=== PATIENT | female | born 1960 | race Caucasian/White ===

== ENCOUNTER 2024-07-17 13:23 | Observation (INO) | payer BC ==
--- NOTE | 2024-07-17 15:08 | RAD REPORT ---
EXAM: Chest Single View HISTORY: COUGH COMPARISON: 08/31/2023 FINDINGS: LUNGS/PLEURA: Possible free air underneath the right hemidiaphragm. The lungs are clear. MEDIASTINUM: The mediastinal silhouette is within normal limits. CARDIAC: The cardiac silhouette is within normal limits. UPPER ABDOMEN: No significant abnormality. BONES: No acute abnormality. LINES/TUBES/OTHER: N/A IMPRESSION: Possible free air underneath the right hemidiaphragm. The lungs are clear. THIS REPORT CONTAINS FINDINGS THAT MAY BE CRITICAL TO PATIENT CARE. The emergent findings were commun icated to Dr. Mathew on 07/17/2024 3:05 PM.
[2024-07-17 15:43] LABS: Absolute Lymphocytes (CBC) 0.7 K/uL (0.7-4.9); Absolute Monocytes 0.3 K/uL (0.1-1.3); Absolute Neutrophil 12.1 K/uL (1.8-8.0); Basophils % 0.1 % (0-1.3); Hematocrit 39.3 % (36.0-45.0); Hemoglobin 13.4 g/dL (12.0-15.0); Lymphocytes % 5.2 % (15.3-44.8); MCH 30.4 pg (27.0-35.0); MCHC 34.2 g/dL (32.0-36.0); MCV 88.8 fL (80-100); MPV 6.7 fL (7.6-11.3); Monocytes % 2.6 % (3.3-12.3); Neutrophils % 92.1 % (41.7-73.7); Platelets 331 thou/uL (152-406); RBC Red Blood Cell Count 4.42 M/uL (3.86-4.86); Red Cell Distribution Width 15.4 % (12.1-15.2)
[2024-07-17] MEDS ORDERED: ALBUTEROL 2.5 MG/3 ML NEB SOL ONE (15:52)
[2024-07-17] MEDS ORDERED: CEFTRIAXONE 1000 MG/VIAL ONE (15:52)
[2024-07-17] MEDS ORDERED: IPRATROPIUM BROM 0.5MG/2.5ML ONE (15:52)
[2024-07-17] MEDS ORDERED: METHYLPREDNISOLONE 125 MG INJ ONE (15:53)
[2024-07-17 16:03] LABS: Anion Gap 11.3 mEq/L (5.0-15.0); BUN Blood Urea Nitrogen 12 mg/dL (7-18); Bicarbonate 25 mEq/L (21-32); Glomerular Filtration Rate 94 ml/min (=/>90); Glucose Level 144 mg/dL (74-106); NT PRO-BNP 96 pg/mL (<125); Potassium 4.3 mEq/L (3.5-5.1); Sodium Level 135 mEq/L (136-145)
[2024-07-17 16:05] LABS: Troponin High Sensitivity < 3.0 pg/mL (<58.9)
--- NOTE | 2024-07-17 16:56 | RAD REPORT ---
EXAMINATION: CT ABDOMEN AND PELVIS WITH CONTRAST CLINICAL INDICATION: Female, 63 years old.eval for ruptured viscus TECHNIQUE: CT abdomen and pelvis was performed, after the administration of IV contrast, as per [facility] protocol. Axial, sagittal and coronal reconstructions were obtained. One or more of the following dose reduction techniques were used: Automated exposure control, adjustment of the mA and/o r kV according to patient size, and/or iterative reconstruction. Unless otherwise specified, incidental findings do not require dedicated imaging follow-up. [id number]. COMPARISON: No prior exam. FINDINGS: LOWER CHEST: Mild nodular and consolidative opacities in the medial lung bases bilaterally.No signifi cant pericardial effusion. Small hiatal hernia. UPPER GI: No significant abnormality. LIVER: No significant focal abnormality. GALLBLADDER/BILE DUCTS: No biliary ductal dilatation.? PANCREAS: Atrophy, but otherwise unremarkable. SPLEEN: Unremarkable. ADRENALS: No adrenal masses. KIDNEYS AND URETERS: No hydronephrosis.No suspicious renal mass. ABDOMINAL AORTA AND OTHER VESSELS: Mild atherosclerotic changes. PERITONEUM: No abnormal free fluid. No free air. LYMPH NODES: No pathologic lymphadenopathy. ABDOMINAL WALL: Unremarkable SMALL BOWEL/COLON: Small bowel has normal course and caliber. No colonic wall thickening or pericolon ic inflammatory changes.Normal appendix. Mild diverticulosis without diverticulitis. Formed stool in the small bowel suggesting slow transit. Probably some element of constipation is present. URINARY BLADDER: Underdistended but grossly unremarkable. REPRODUCTIVE ORGANS: No pathologic process. MUSCULOSKELETAL: Multilevel degenerative changes in the spine. No acute fracture. Left hip arthroplas ty. Grade 1 anterolisthesis of L3 on L4. ADDITIONAL FINDINGS: None. IMPRESSION: No acute or significant abnormalities seen in the abdomen or pelvis. Specifically, no evidence of pne umoperitoneum. Nodular and mildly consolidative airspace disease in the medial lung bases could reflect either a non specific infectious or inflammatory process or possibly sequela of aspiration.
--- NOTE | 2024-07-17 17:00 | ER ---
Nurse's Notes [facility] Name: Elizabeth Rogel Age: 63 yrs Sex: Female : 1960 Arrival Date: 07/17/2024 Time: 13:23 Bed 24 Private MD: Diagnosis: Unspecified bacterial pneumonia;Sepsis, unspecified organism Presentation: 07/17 13:53 Chief complaint: Patient states: she has been having shortness of breath, cough, and ap3 sore throat since Wednesday07/10/24. Patient states she was evaluated by her PCP and her asthma Dr. who told her to come here for further evaluation after antibiotic treatment, breathing treatments and steroids. Patient states she was diagnosed with the FLU Friday 07/14. Coronavirus screen: At this time, the client does not indicate any symptoms associated with coronavirus-19. Ebola Screen: No symptoms or risks identified at this time. Initial Sepsis Screen: Does the patient meet any 2 criteria? No. Patient's initial sepsis screen is negative. Does the patient have a suspected source of infection? No. Patient's initial sepsis screen is negative. Risk Assessment: Do you want to hurt yourself or someone else? Patient reports no desire to harm self or others. Onset of symptoms was July 10, 2024. 13:53 Method Of Arrival: Ambulatory ap3 13:53 Acuity: KARLA 3 ap3 Triage Assessment: 13:57 General: Appears in no apparent distress. Behavior is calm, cooperative, appropriate ap3 for age. Pain: Denies pain. Neuro: Level of Consciousness is awake, alert, obeys commands, Oriented to person, place, time, situation, Appropriate for age. Cardiovascular: Patient's skin is warm and dry. Respiratory: Reports cough that is Airway is patent Respiratory effort is even, unlabored, Respiratory pattern is regular, symmetrical, Onset: The symptoms/episode began/occurred gradually, the patient has mild shortness of breath. Historical: - Allergies: 13:57 Tizanidine; ap3 - PMHx: 13:57 Asthma; valve prolapse; Hypercholesterolemia; ap3 - Immunization history:: Client reports receiving the 2nd dose of the Covid vaccine, Flu vaccine is up to date. - Infectious Disease History:: Denies. - Social history:: Smoking status: Patient denies any tobacco usage or history of. Screenin:58 [facility] ED Fall Risk Assessment (Adult) History of falling in the last 3 months, ap3 including since admission No falls in past 3 months (0 pts) Confusion or Disorientation No (0 pts) Intoxicated or Sedated No (0 pts) Impaired Gait No (0 pts) Mobility Assist Device Used No (0 pt) Altered Elimination No (0 pt) Score/Fall Risk Level 0 - 2 = Low Risk Oriented to surroundings, Maintained a safe environment, Educated pt \T\ family on fall prevention, incl call for assistance when getting out of bed, Assessed \T\ reinforced patient's understanding of fall precautions, Hourly rounding (assess needs \T\ fall precautionary measures) done, Used ambulatory aids as needed (educated on \T\ assisted with). Abuse screen: Denies threats or abuse. Nutritional screening: No deficits noted. Tuberculosis screening: No symptoms or risk factors identified. Assessment: 15:30 General: Appears in no apparent distress. uncomfortable, Behavior is calm, cooperative, jb4 appropriate for age. Pain: Denies pain. Neuro: Level of Consciousness is awake, alert, obeys commands, Oriented to person, place, time, situation. Cardiovascular: Patient's skin is warm and dry. Rhythm is sinus rhythm. Respiratory: Airway is patent Respiratory effort is even, labored, Respiratory pattern is regular, symmetrical. Derm: Skin is intact, Skin is pink, warm \T\ dry. Musculoskeletal: Circulation, motion, and sensation intact. Range of motion: intact in all extremities. 16:32 Reassessment: Patient appears in no apparent distress at this time. Patient and/or jb4 family updated on plan of care and expected duration. Pain level reassessed. Patient is alert, oriented x 3, equal unlabored respirations, skin warm/dry/pink. 17:30 Reassessment: Patient appears in no apparent distress at this time. Patient and/or jb4 family updated on plan of care and expected duration. Pain level reassessed. Patient is alert, oriented x 3, equal unlabored respirations, skin warm/dry/pink. 18:30 Reassessment: Patient appears in no apparent distress at this time. Patient and/or jb4 family updated on plan of care and expected duration. Pain level reassessed. Patient is alert, oriented x 3, equal unlabored respirations, skin warm/dry/pink. 19:30 Reassessment: Patient appears in no apparent distress at this time. Patient and/or jb4 family updated on plan of care and expected duration. Pain level reassessed. Patient is alert, oriented x 3, equal unlabored respirations, skin warm/dry/pink. 20:30 Reassessment: Patient appears in no apparent distress at this time. Patient and/or jb4 family updated on plan of care and expected duration. Pain level reassessed. Patient is alert, oriented x 3, equal unlabored respirations, skin warm/dry/pink. 21:30 Reassessment: Patient appears in no apparent distress at this time. Patient and/or jb4 family updated on plan of care and expected duration. Pain level reassessed. Patient is alert, oriented x 3, equal unlabored respirations, skin warm/dry/pink. Vital Signs: 13:30 Pulse Ox 97% on R/A; ap3 13:53 BP 156 / 72; Pulse 85; Resp 18; Temp 98.2; Pulse Ox 98% on R/A; ap3 13:53 Weight 74.84 kg; Height 5 ft. 5 in. ; ap3 16:32 BP 127 / 62; Pulse 91; Resp 14; Pulse Ox 100% on 8 lpm Nebulizer Mask; jb4 18:00 BP 137 / 50; Pulse 98; Resp 16; Pulse Ox 99% on R/A; jb4 19:00 BP 132 / 65; Pulse 97; Resp 16; Pulse Ox 96% on R/A; jb4 19:30 BP 136 / 64; Pulse 96; Resp 18; Pulse Ox 97% on R/A; jb4 21:45 BP 146 / 77; Pulse 91; Resp 16; Pulse Ox 97% on R/A; jb4 13:53 Body Mass Index 27.46 (74.84 kg, 165.1 cm) ap3 ED Course: 13:25 Patient arrived in ED. as 13:36 Hung Mathew MD is Attending Physician. ec2 13:57 Triage completed. ap3 13:58 Arm band placed on right wrist. ap3 14:57 XRAY Chest (1 view) In Process Unspecified. EDMS 15:33 Inserted saline lock: 20 gauge in right antecubital area, using aseptic technique. jb4 Blood collected. 15:34 Troponin HS Sent. jb4 15:34 NT PRO-BNP Sent. jb4 15:34 CBC with Diff Sent. jb4 15:35 Basic Metabolic Panel Sent. jb4 16:31 Jorge Spencer, RN is Primary Nurse. jb4 16:35 CT Abd/Pelvis - IV Contrast Only In Process Unspecified. EDMS 17:00 Morales Griggs is Hospitalizing Provider. ec2 22:20 Patient has correct armband on for positive identification. Bed in low position. Call jb4 light in reach. Side rails up X 1. Provided Education on: need for admit. 22:20 No provider procedures requiring assistance completed. Patient admitted, IV remains in jb4 place. Administered Medications: 16:04 Drug: Rocephin IV 1 grams IV at calculated rate once; Given slow IV push per pharmacy jb4 instructions Route: IV; Rate: calculated rate; Site: right antecubital; 16:07 Follow up: IV Status: Completed infusion; IV Intake: 10ml jb4 16:04 Drug: DuoNeb Nebulize (3:1) (2.5 mg - 0.5 mg) 3 ml Nebulizer once Route: Nebulizer; jb4 18:23 Follow up: Response: No adverse reaction; Marked relief of symptoms jb4 16:04 Drug: MethylPrednisoLONE IVP 125 mg IVP once Route: IVP; Site: right antecubital; jb4 18:23 Follow up: Response: No adverse reaction jb4 18:35 Drug: AZITHromycin IVPB 500 mg IVPB once over 1 hrs; (mix in 250 mL NS) Route: IVPB; jb4 Infused Over: 1 hrs; Site: right forearm; 19:35 Follow up: Response: No adverse reaction; IV Status: Completed infusion; IV Intake: jb4 250ml 19:05 CANCELLED (Physician Discretion): ns 0.9% 2000 ml IV at 1 bolus Per protocol; to be ec2 given as a bolus over 60 minutes 19:24 Drug: NS 0.9% IV 2500 ml IV at 2500 bolus Per protocol; to be given as a bolus over 60 jb4 minutes Route: IV; Rate: 2500 bolus; Site: right antecubital; 21:00 Follow up: Response: No adverse reaction; IV Status: Completed infusion; IV Intake: jb4 2500ml Medication: 22:20 VIS not applicable for this client. jb4 Intake: 16:07 IV: 10ml; Total: 10ml. jb4 19:35 IV: 250ml; Total: 260ml. jb4 21:00 IV: 2500ml; Total: 2760ml. jb4 Outcome: 17:00 Decision to Hospitalize by Provider. ec2 22:20 Admitted to Tele accompanied by nurse, room 410, with chart, jb4 22:20 Condition: stable 22:20 Discharge instructions given to patient, family, Instructed on the need for admit, Demonstrated understanding of instructions, 22:21 Patient left the ED. jb4 Signatures: Dispatcher [employer] Sabine Stockton James, RN RN jb4 Marbella Newton RN RN ap3 Hung Mathew MD MD ec2
--- NOTE | 2024-07-17 17:01 | EDPHYS ---
Physician Documentation [facility] Name: Elizabeth Rogel Age: 63 yrs Sex: Female : 1960 Arrival Date: 07/17/2024 Time: 13:23 Bed 24 Private MD: ED Physician Hung Mathew HPI: 07/17 14:09 This 63 yrs old Female presents to ER via Ambulatory with complaints of ec2 Pneumonia, Shortness Of Breath. 14:11 Patient arrives today for cough symptoms. Patient with history of asthma, recent trial ec2 of Augmentin and azithromycin, reports that she was diagnosed with pneumonia, is having persistent cough as well as shortness of breath with minimal improvement of symptoms despite antibiotic therapy. Patient also tested positive for flu several days ago at urgent care.. Historical: - Allergies: 13:57 Tizanidine; ap3 - PMHx: 13:57 Asthma; valve prolapse; Hypercholesterolemia; ap3 - Immunization history:: Client reports receiving the 2nd dose of the Covid vaccine, Flu vaccine is up to date. - Infectious Disease History:: Denies. - Social history:: Smoking status: Patient denies any tobacco usage or history of. ROS: 14:10 Constitutional: as per hpi ec2 Exam: 14:10 Constitutional: GEN: NAD Head: atraumatic Eyes: EOMI Ears: External ears are ec2 normal. CV: regular rate LUNGS: no respiratory distress, scattered rales noted, scattered wheezes noted. ABD: non-distended SKIN: no evidence of rashes MSK: no evidence of trauma Vital Signs: 13:30 Pulse Ox 97% on R/A; ap3 13:53 BP 156 / 72; Pulse 85; Resp 18; Temp 98.2; Pulse Ox 98% on R/A; ap3 13:53 Weight 74.84 kg; Height 5 ft. 5 in. ; ap3 16:32 BP 127 / 62; Pulse 91; Resp 14; Pulse Ox 100% on 8 lpm Nebulizer Mask; jb4 18:00 BP 137 / 50; Pulse 98; Resp 16; Pulse Ox 99% on R/A; jb4 19:00 BP 132 / 65; Pulse 97; Resp 16; Pulse Ox 96% on R/A; jb4 19:30 BP 136 / 64; Pulse 96; Resp 18; Pulse Ox 97% on R/A; jb4 21:45 BP 146 / 77; Pulse 91; Resp 16; Pulse Ox 97% on R/A; jb4 13:53 Body Mass Index 27.46 (74.84 kg, 165.1 cm) ap3 MDM: 13:57 Medical Screening Exam initiated ec2 14:11 Data reviewed: vital signs, nurses notes. ec2 14:12 ED course: Patient arrives today for evaluation of cough symptoms. Examination yields ec2 cardiopulmonary findings as above. Obtain lab work, chest x-ray. DDx include processes such as asthma exacerbation, fluid retention, pneumonia.. 15:48 ED course: EKG independently reviewed and interpreted by me, shows normal sinus rhythm, ec2 rate of 86, no acute ST segment elevations, intervals are nonactionable.. 16:11 ED course: EKG independently reviewed and interpreted by me, shows normal sinus rhythm, ec2 rate of 86, no acute ST segment elevations, intervals are nonactionable.. 16:37 ED course: CBC shows slight leukocytosis. Troponin within normal ranges, BMP within ec2 normal ranges, chest x-ray shows possible free air under the right hemidiaphragm, will obtain CT scan of the abdomen pelvis as well.. 16:59 ED course: CT imaging shows pneumonia, will admit given failed outpatient therapy. ec2 Discussed with hospitalist, pending admission.. 07/17 14:08 Order name: Basic Metabolic Panel; Complete Time: 16:36 ec2 07/17 14:08 Order name: CBC with Diff; Complete Time: 19:04 ec2 07/17 14:08 Order name: NT PRO-BNP; Complete Time: 16:36 ec2 07/17 14:08 Order name: Troponin HS; Complete Time: 16:36 ec2 07/17 16:59 Order name: Lactate w/ 2H reflex if indic.; Complete Time: 19:04 ec2 07/17 16:59 Order name: Blood Culture Adult (2) ec2 07/17 17:18 Order name: Manual Differential; Complete Time: 19:04 EDMS 07/17 18:52 Order name: CBC with Automated Diff EDMS 07/17 18:52 Order name: CBC with Automated Diff EDMS 07/17 18:52 Order name: Comprehensive Metabolic Panel EDMS 07/17 18:52 Order name: Comprehensive Metabolic Panel EDMS 07/17 18:52 Order name: Troponin High Sensitivity [facility] 07/17 18:52 Order name: Troponin High Sensitivity [facility] 07/17 18:52 Order name: Troponin High Sensitivity [facility] 07/17 18:52 Order name: Troponin High Sensitivity [facility] 07/17 18:53 Order name: C-Reactive Protein [facility] 07/17 18:53 Order name: Lactate w/ 2H reflex if indic. [facility] 07/17 18:53 Order name: NT PRO-BNP [facility] 07/17 18:53 Order name: Procalcitonin [facility] 07/17 18:53 Order name: T4 Free [facility] 07/17 18:53 Order name: Thyroid Stimulating Hormone [facility] 07/17 18:53 Order name: Vitamin B12 Level [facility] 07/17 18:56 Order name: Ghost Lactate-NO COLLECT Timer [facility] 07/17 22:20 Order name: Lactate Sepsis 2 HR Follow-up [facility] 07/17 14:08 Order name: XRAY Chest (1 view); Complete Time: 15:11 ec2 07/17 15:08 Order name: CT Abd/Pelvis - IV Contrast Only; Complete Time: 16:57 ec2 07/17 18:53 Order name: Echo with Doppler [facility] 07/17 18:53 Order name: Echo with Doppler [facility] 07/17 18:53 Order name: Chest Single View [facility] 07/17 14:08 Order name: EKG; Complete Time: 14:08 ec2 07/17 18:52 Order name: CONS Physician Consult [facility] 07/17 14:08 Order name: Cardiac monitoring; Complete Time: 15:48 ec2 07/17 14:08 Order name: EKG - Nurse/Tech; Complete Time: 15:48 ec2 07/17 14:08 Order name: IV Saline Lock; Complete Time: 15:34 ec2 07/17 14:08 Order name: Labs collected and sent; Complete Time: 15:34 ec2 07/17 14:08 Order name: O2 Per Protocol; Complete Time: 15:34 ec2 07/17 14:08 Order name: O2 Sat Monitoring; Complete Time: 15:34 ec2 Administered Medications: 16:04 Drug: Rocephin IV 1 grams IV at calculated rate once; Given slow IV push per pharmacy jb4 instructions Route: IV; Rate: calculated rate; Site: right antecubital; 16:07 Follow up: IV Status: Completed infusion; IV Intake: 10ml 4 16:04 Drug: DuoNeb Nebulize (3:1) (2.5 mg - 0.5 mg) 3 ml Nebulizer once Route: Nebulizer; jb4 18:23 Follow up: Response: No adverse reaction; Marked relief of symptoms jb4 16:04 Drug: MethylPrednisoLONE IVP 125 mg IVP once Route: IVP; Site: right antecubital; jb4 18:23 Follow up: Response: No adverse reaction jb4 18:35 Drug: AZITHromycin IVPB 500 mg IVPB once over 1 hrs; (mix in 250 mL NS) Route: IVPB; jb4 Infused Over: 1 hrs; Site: right forearm; 19:35 Follow up: Response: No adverse reaction; IV Status: Completed infusion; IV Intake: jb4 250ml 19:05 CANCELLED (Physician Discretion): ns 0.9% 2000 ml IV at 1 bolus Per protocol; to be ec2 given as a bolus over 60 minutes 19:24 Drug: NS 0.9% IV 2500 ml IV at 2500 bolus Per protocol; to be given as a bolus over 60 jb4 minutes Route: IV; Rate: 2500 bolus; Site: right antecubital; 21:00 Follow up: Response: No adverse reaction; IV Status: Completed infusion; IV Intake: jb4 2500ml Disposition: 16:59 Critical Care:. ec2 Disposition Summary: 07/17/24 17:00 Hospitalization Ordered Notes: Hospitalization Status: Inpatient Admission ec2 Provider: Morales Griggs ec2 [facility] ([facility]) ec2 Condition: Stable ec2 Problem: an ongoing problem ec2 Symptoms: are unchanged ec2 Bed/Room Type: Standard ec2 Room Assignment: 410(07/17/24 19:46) rv1 Diagnosis - Unspecified bacterial pneumonia ec2 - Sepsis, unspecified organism ec2 Forms: - Medication Reconciliation Form ec2 - SBAR form ec2 - Leadership Thank You Letter ec2 Critical care time excluding procedures: 16:59 Critical care time: Bedside Care: 30 minutes, Consultation: 5 minutes. Total time: 35 ec2 minutes Signatures: Dispatcher [employer] Jorge Youngblood RN RN jb4 Marbella Newton RN RN ap3 Zandra Cheng rv1 Hung Mathew MD MD ec2 Corrections: (The following items were deleted from the chart) 19:05 19:04 NS 0.9% IV 2000 ml IV at 1 bolus Per protocol; to be given as a bolus over 60 ec2 minutes ordered. ec2 19:46 17:00 ec2 rv1
[2024-07-17 17:17] LABS: Band Neutrophils 7 % (0-1); Differential Total Cells Count 100; Lymphocytes 8 % (15-42); Monocytes 3 % (0-10); Segmented Neutrophils 80 % (40-80)
[2024-07-17 17:18] LABS: Blood Morphology Comment NOT SEEN (NOT SEEN); Metamyelocytes 2 % (0-0); Platelet Estimate ADEQ; Platelets Clumped FEW
[2024-07-17] MEDS ORDERED: AZITHROMYCIN 500 MG INJ IVPB ONE (18:27)
[2024-07-17] MEDS ORDERED: NA CHLORIDE 0.9% 250 ML ONE (18:27)
[2024-07-17] MEDS ORDERED: MORPHINE 2 MG/ML SYR IV PRN (18:45)
[2024-07-17] MEDS ORDERED: ONDANSETRON 4 MG/2 ML VIAL IV PRN (18:45)
--- NOTE | 2024-07-17 18:54 | P.HP ---
Certification for Inpatient Patient admitted to: Observation With expected LOS: <2 Midnights Patient will require the following post-hospital care: None Practitioner: I am a practitioner with admitting privileges, knowledge of patient current condition, hospital course, and medical plan of care. Services: Services provided to patient in accordance with Admission requirements found in Title 42 Section 412.3 of the Code of Federal Regulations Patient History Date of Service: 07/17/24 Reason for admission: Shortness of breath History of Present Illness: Patient is a 63-year-old female who has been dealing with shortness of breath for the last 5 to 7 days. Her symptoms have been gradually getting worse so she went to a telemedicine appointment and she was prescribed Augmentin and prednisone. Her clinical symptoms were not improving so she went to see her PCP who gave her Zithromax. After the Zithromax she still did not get any better so she went to urgent care and she had a chest x-ray which showed a questionable left pleural effusion and left lower lobe infiltrate. She was started on Zithromax on Wednesday and went to the urgent care this past weekend. She was not improving she followed up with her sweatband maker who recommended her coming to the emergency room. In the ER she was short of breath but her chest x-ray did not reveal any pulmonary abnormalities except addition of some free air underneath the right diaphragm. Abdominal films were unremarkable. Clinically she does not appear to have an acute abdomen. She was coughing violently which led her to crying yesterday. She did start feeling some pain in the right side at that time. Currently she is doing better and she will be admitted for observation. Allergies tizanidine Allergy (Verified 07/17/24 22:26) Anaphylaxis mushroom Adverse Reaction (Verified 07/17/24 22:26) Nausea/Vomiting Home Medications: Fluticasone/Umeclidin/Vilanter [Trelegy Ellipta 100-62.5-25] 1 puff IH DAILY 07/17/24 Pregabalin [Lyrica*] 1 cap PO BID 07/17/24 Thyroid,Pork [[place] Thyroid] 1 tab PO DAILY 07/17/24 - Past Medical/Surgical History -: Hypothyroidism -: Hyperlipidemia -: Chronic low back pain Past Surgical History: Patient denies surgical history - Family History Father Family History: Reviewed- Non-Contributory - Social History Smoking Status: Never smoker Alcohol use: No CD- Drugs: No Review of Systems 10-point ROS is otherwise unremarkable Physical Examination - Vital Signs Temperature: 98 F Blood Pressure: 130/80 Pulse: 80 Respirations: 18 Pulse Ox (%): 95 - Physical Exam General: Alert, In no apparent distress, Oriented x3 HEENT: Atraumatic, PERRLA, Mucous membr. moist/pink, EOMI, Sclerae nonicteric Neck: Supple, 2+ carotid pulse no bruit, No LAD, Without JVD or thyroid abnormality Respiratory: Other (Coarse breath sounds) Cardiovascular: Regular rate/rhythm, Normal S1 S2, No murmurs, Other (Tachyarrhythmia) Gastrointestinal: Normal bowel sounds, Soft and benign, Non-distended, No tenderness Musculoskeletal: No clubbing, No swelling, No tenderness Integumentary: No rashes Neurological: Normal gait, Normal speech, Normal strength at 5/5 x4 extr, Normal tone, Sensation intact, Cranial nerves 3-12 intact, Normal affect Lymphatics: No axilla or inguinal lymphadenopathy - Studies Laboratory Data (last 24 hrs) 07/17/24 07/17/24 15:33 15:33 WBC 13.20 H Hgb 13.4 Hct 39.3 Plt Count 331 Sodium 135 L Potassium 4.3 BUN 12 Creatinine 0.72 Glucose 144 H Assessment & Plan - Problems (Diagnosis) (1) Viral pneumonia Current Visit: Yes Status: Acute (2) Tachyarrhythmia Current Visit: Yes Status: Acute (3) Intra-abdominal free air of unknown etiology Current Visit: Yes Status: Acute (4) History of hypothyroidism Current Visit: Yes Status: Acute - Plan Plan: 1. Patient with shortness of breath; unknown etiology. Imaging studies without any significant abnormality. Patient could have a viral syndrome or could have asthma. Will get pulmonary consultation. Continue with nebs, steroids, and antibiotics. 2. Patient with free air underneath the diaphragm; unknown etiology. Patient states she was vigorously coughing to the point where she started having pain on the right side. The free air is mainly seen underneath the right side of the diaphragm.Chest x-rays from a few days ago showed infiltrate on the left side. Also a questionable effusion. Currently imaging studies do not reveal an infiltrate or an effusion. Will continue with supportive care and will get general surgery input. 3. History of hypothyroidism; continue with thyroid supplementation 4. History of low back pain; continue with Lyrica 5. GI and DVT prophylaxis Discharge Plan: Home Plan to discharge in: 24 Hours - Advance Directives Does patient have a Living Will: No Does patient have a Durable POA for Healthcare: No - Code Status/Comfort Care Code Status Assessed: Yes Code Status: Full Code Critical Care: No Time Spent Managing PTS Care (In Minutes): 45
[2024-07-17] MEDS: IPRATROPIUM BROM 0.5MG/2.5ML NEB SCH (19:00)
[2024-07-17] MEDS: ALBUTEROL 2.5 MG/3 ML NEB SOL NEB SCH (19:00)
[2024-07-17] MEDS ORDERED: NA CHLORIDE 0.9% 500 ML ONE (19:18)
[2024-07-17] MEDS ORDERED: NA CHLORIDE 0.9% 2,000 ML ONE (19:19)
[2024-07-17 22:27] VITALS: BMI 27.4
[2024-07-17] MEDS: NA CHLORIDE 0.9% 1,000 ML IV SCH (22:49)
[2024-07-17] MEDS: METHYLPREDNISOLONE 40 MG INJ IV SCH (22:49)
[2024-07-18] MEDS: PIPER TAZO 3.375 GM in NA CHLORIDE 0.9% 100 ML IV SCH (00:47)
[2024-07-18] MEDS: ACETAMINOPHEN 500 MG TAB PO PRN (02:48)
[2024-07-18 04:31] VITALS: O2SAT 97
[2024-07-18 06:26] LABS: Absolute Lymphocytes (CBC) 0.7 K/uL (0.7-4.9); Absolute Monocytes 0.3 K/uL (0.1-1.3); Absolute Neutrophil 9.6 K/uL (1.8-8.0); Basophils % 0.1 % (0-1.3); Hematocrit 34.2 % (36.0-45.0); Hemoglobin 11.6 g/dL (12.0-15.0); Lymphocytes % 6.7 % (15.3-44.8); MCH 30.1 pg (27.0-35.0); MCV 88.4 fL (80-100); MPV 6.7 fL (7.6-11.3); Neutrophils % 90.2 % (41.7-73.7); Platelets 311 thou/uL (152-406); RBC Red Blood Cell Count 3.87 M/uL (3.86-4.86); Red Cell Distribution Width 15.6 % (12.1-15.2)
[2024-07-18 06:39] LABS: Albumin 2.7 g/dL (3.4-5.0); Albumin/Globulin Ratio 0.8 (1.1-1.8); Anion Gap 13.9 mEq/L (5.0-15.0); Bilirubin Total 0.2 mg/dL (0.2-1.0); Globulin 3.5 g/dL (2.3-3.5); Potassium 3.9 mEq/L (3.5-5.1); Protein, Total 6.2 g/dL (6.4-8.2); Troponin High Sensitivity 7.1 pg/mL (<58.9)
[2024-07-18 07:03] LABS: C-Reactive Protein 19.6 mg/L (<3.00); Thyroid Stimulating Hormone 0.089 uIU/mL (0.358-3.740)
--- NOTE | 2024-07-18 07:22 | RAD REPORT ---
EXAM: Chest Single View HISTORY: 63 years Female pneumonia COMPARISON: 07/17/2024 FINDINGS: LUNGS/PLEURA: Mild opacities in the medial lung base is better seen on CT but which are similar. CARDIAC/MEDIASTINUM: Stable size and configuration. UPPER ABDOMEN: No significant abnormality. BONES: No acute abnormality. LINES/TUBES/OTHER: N/A IMPRESSION: Mild airspace disease in the medial lung bases is similar to 07/17/2024.
[2024-07-18] MEDS: predniSONE 20 MG TAB PO SCH (09:00)
[2024-07-18] MEDS: PREGABALIN 50 MG CAP PO SCH (09:15)
[2024-07-18] MEDS: levoFLOXacin 750 MG TAB PO SCH (09:15)
--- NOTE | 2024-07-18 10:40 | P.DS ---
Admission Date: 07/17/24 Discharge Date: 07/19/24 Disposition: ROUTINE DISCHARGE Discharge Condition: GOOD Reason for Admission: Shortness of breath Vital Signs/Physical Exam: Temp Pulse Resp BP Pulse Ox 98 F 82 20 149/81 H 97 07/18/24 08:00 07/18/24 08:00 07/18/24 08:00 07/18/24 08:00 07/18/24 08:00 Laboratory Data at Discharge: WBC 10.70 thou/uL (4.3-10.9) 07/18/24 06:00 Hgb 11.6 g/dL (12.0-15.0) L D 07/18/24 06:00 Hct 34.2 % (36.0-45.0) L 07/18/24 06:00 Plt Count 311 thou/uL (152-406) 07/18/24 06:00 Sodium 139 mEq/L (136-145) 07/18/24 06:00 Potassium 3.9 mEq/L (3.5-5.1) 07/18/24 06:00 BUN 10 mg/dL (7-18) 07/18/24 06:00 Creatinine 0.64 mg/dL (0.55-1.02) 07/18/24 06:00 Glucose 128 mg/dL (74-106) H 07/18/24 06:00 Total Bilirubin 0.2 mg/dL (0.2-1.0) 07/18/24 06:00 AST 14 U/L (15-37) L 07/18/24 06:00 ALT 36 U/L (13-56) 07/18/24 06:00 Alkaline Phosphatase 53 U/L (45-117) 07/18/24 06:00 Home Medications: Fluticasone/Umeclidin/Vilanter [Trelegy Ellipta 100-62.5-25] 1 puff IH DAILY 07/17/24 Pregabalin [Lyrica*] 1 cap PO BID 07/17/24 Thyroid,Pork [[place] Thyroid] 1 tab PO DAILY 07/17/24 levoFLOXacin [Levaquin*] 750 mg PO DAILY 5 Days #5 tab 07/18/24 predniSONE [Prednisone*] 20 mg PO BID 4 Days #8 tab 07/18/24 New Medications: levoFLOXacin [Levaquin*] 750 mg PO DAILY 5 Days #5 tab predniSONE [Prednisone*] 20 mg PO BID 4 Days #8 tab Physician Discharge Instructions: Patient was admitted to hospital for dyspnea, suspected pneumonia. She was given nebulizer treatments, steroids and antibiotics and had improvement in her symptoms. Her initial chest x-ray showed concern for possible air under the diaphragm but CT performed after this showed no pneumoperitoneum. Her dyspnea improved overnight and she stable for discharge outpatient follow-up at this time. Followup: Raúl Solares MD [Primary Care Provider] - 1-2 Weeks Physician Review: Patient Assessed, Agree with Above Assessment and Plan
--- NOTE | 2024-07-18 11:40 | P.CNS ---
Date of Consult: 07/18/24 Chief Complaint: Shortness of breath History of Present Illness: Patient is 63 years of age with a history of asthma is on Fasenra became little sick last Wednesday treated with steroid some fever cough shortness of breath and it appeared in the hospital doing better is any fever or chills Allergies tizanidine Allergy (Verified 07/17/24 22:26) Anaphylaxis mushroom Adverse Reaction (Verified 07/17/24 22:26) Nausea/Vomiting Home Medications: Fluticasone/Umeclidin/Vilanter [Trelegy Ellipta 100-62.5-25] 1 puff IH DAILY 07/17/24 Pregabalin [Lyrica*] 1 cap PO BID 07/17/24 Thyroid,Pork [[place] Thyroid] 1 tab PO DAILY 07/17/24 levoFLOXacin [Levaquin*] 750 mg PO DAILY 5 Days #5 tab 07/18/24 predniSONE [Prednisone*] 20 mg PO BID 4 Days #8 tab 07/18/24 - Past Medical/Surgical History Diabetic: No -: Hypothyroidism -: Hyperlipidemia -: Chronic low back pain -: Severe asthma on Fasenra -: right knee replacement -: left hip replacement -: complete hysterectomy -: cataracts GEORGIE - Family History Father Family History: Reviewed- Non-Contributory - Social History Alcohol use: No CD- Drugs: No Place of Residence: Home Review of Systems 10-point ROS is otherwise unremarkable Physical Examination Temp Pulse Resp BP Pulse Ox 98 F 82 20 149/81 H 97 07/18/24 08:00 07/18/24 08:00 07/18/24 08:00 07/18/24 08:00 07/18/24 08:00 General: Alert, Oriented x3 HEENT: Atraumatic Neck: Supple Respiratory: Clear to auscultation bilaterally Cardiovascular: No edema, Regular rate/rhythm, Normal S1 S2 Gastrointestinal: Normal bowel sounds, Soft and benign Laboratory Data (last 24 hrs) 07/17/24 07/17/24 15:33 15:33 WBC 13.20 H Hgb 13.4 Hct 39.3 Plt Count 331 Sodium 135 L Potassium 4.3 BUN 12 Creatinine 0.72 Glucose 144 H - Problems (1) Asthma exacerbation Current Visit: Yes Status: Acute Plan: Patient is 63 years of age is on Fasenra for her asthma recent exacerbation most likely induced by a viral upper respiratory tract infection chest x-ray is negative labs reviewed he is currently doing better vital signs are stable to be discharged home on some levofloxacin patient has also trilogy at home see change 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
[2024-07-18 12:02] VITALS: BP 152/66; TEMP 97.7
--- NOTE | 2024-07-18 13:46 | P.DS ---
Admission Date: 07/17/24 Discharge Date: 07/18/24 Reason for Admission: Shortness of breath Brief History of Present Illness: Patient is a 63-year-old female who has been dealing with shortness of breath for the last 5 to 7 days. Her symptoms have been gradually getting worse so she went to a telemedicine appointment and she was prescribed Augmentin and prednisone. Her clinical symptoms were not improving so she went to see her PCP who gave her Zithromax. After the Zithromax she still did not get any better so she went to urgent care and she had a chest x-ray which showed a questionable left pleural effusion and left lower lobe infiltrate. She was started on Zithromax on Wednesday and went to the urgent care this past weekend. 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 In the ER she was short of breath but her chest x-ray did not reveal any pulmonary abnormalities except addition of some free air underneath the right diaphragm. Abdominal films were unremarkable. Clinically she does not appear to have an acute abdomen. She was coughing violently which led her to crying yesterday. She did start feeling some pain in the right side at that time. Currently she is doing better and she will be admitted for observation. Hospital Course: - Problems (Diagnosis) (1)pneumonia Current Visit: Yes Status: Acute (2) Tachyarrhythmia-Improved Current Visit: Yes Status: Acute (3) Intra-abdominal free air of unknown etiology-RULED OUT Current Visit: Yes Status: Acute (4) History of hypothyroidism Current Visit: Yes Status: Acute (5) Asthma exacerbation Patient was admitted to hospital for dyspnea, suspected pneumonia and asthma exacerbation. She was given nebulizer treatments, steroids and antibiotics and had improvement in her symptoms. Her initial chest x-ray showed concern for possible air under the diaphragm but CT performed after this showed no pneumoperitoneum. Her dyspnea improved overnight and she stable for discharge outpatient follow-up at this time. <Harrison Polanco - Last Filed: 07/18/24 13:44> Admission Date: 07/17/24 Discharge Date: 07/18/24 Hospital Course: I have personally seen and evaluated the patient. I have reviewed the history, physical exam findings, and assessment provided by Harrison Polanco NP. Care with the plan of care as documented, with any additional modifications as noted <Rob Guillen - Last Filed: 07/18/24 17:06> Disposition: ROUTINE DISCHARGE Discharge Condition: GOOD Vital Signs/Physical Exam: Temp Pulse Resp BP Pulse Ox 97.7 F 93 H 18 152/66 H 97 07/18/24 12:00 07/18/24 12:00 07/18/24 12:00 07/18/24 12:00 07/18/24 12:00 General: Alert, In no apparent distress, Oriented x3 HEENT: Atraumatic, PERRLA Neck: Supple, JVD not distended Respiratory: Clear to auscultation bilaterally, Normal air movement Cardiovascular: Regular rate/rhythm, Normal S1 S2 Gastrointestinal: Normal bowel sounds Musculoskeletal: No tenderness Integumentary: No rashes Neurological: Normal speech, Normal tone Laboratory Data at Discharge: WBC 10.70 thou/uL (4.3-10.9) 07/18/24 06:00 Hgb 11.6 g/dL (12.0-15.0) L D 07/18/24 06:00 Hct 34.2 % (36.0-45.0) L 07/18/24 06:00 Plt Count 311 thou/uL (152-406) 07/18/24 06:00 Sodium 139 mEq/L (136-145) 07/18/24 06:00 Potassium 3.9 mEq/L (3.5-5.1) 07/18/24 06:00 BUN 10 mg/dL (7-18) 07/18/24 06:00 Creatinine 0.64 mg/dL (0.55-1.02) 07/18/24 06:00 Glucose 128 mg/dL (74-106) H 07/18/24 06:00 Total Bilirubin 0.2 mg/dL (0.2-1.0) 07/18/24 06:00 AST 14 U/L (15-37) L 07/18/24 06:00 ALT 36 U/L (13-56) 07/18/24 06:00 Alkaline Phosphatase 53 U/L (45-117) 07/18/24 06:00 <Harrison Polanco - Last Filed: 07/18/24 13:44> Vital Signs/Physical Exam: Temp Pulse Resp BP Pulse Ox 97.7 F 93 H 18 152/66 H 97 07/18/24 12:00 07/18/24 12:00 07/18/24 12:00 07/18/24 12:00 07/18/24 12:00 Laboratory Data at Discharge: WBC 10.70 thou/uL (4.3-10.9) 07/18/24 06:00 Hgb 11.6 g/dL (12.0-15.0) L D 07/18/24 06:00 Hct 34.2 % (36.0-45.0) L 07/18/24 06:00 Plt Count 311 thou/uL (152-406) 07/18/24 06:00 Sodium 139 mEq/L (136-145) 07/18/24 06:00 Potassium 3.9 mEq/L (3.5-5.1) 07/18/24 06:00 BUN 10 mg/dL (7-18) 07/18/24 06:00 Creatinine 0.64 mg/dL (0.55-1.02) 07/18/24 06:00 Glucose 128 mg/dL (74-106) H 07/18/24 06:00 Total Bilirubin 0.2 mg/dL (0.2-1.0) 07/18/24 06:00 AST 14 U/L (15-37) L 07/18/24 06:00 ALT 36 U/L (13-56) 07/18/24 06:00 Alkaline Phosphatase 53 U/L (45-117) 07/18/24 06:00 <Rob Guillen - Last Filed: 07/18/24 17:06> Diet: Regular Activity: Ad roney Time spent managing pt's care (in minutes): 46 <Harrison Polanco - Last Filed: 07/18/24 13:44> <Rob Guillen - Last Filed: 07/18/24 17:06> Home Medications: Fluticasone/Umeclidin/Vilanter [Trelegy Ellipta 100-62.5-25] 1 puff IH DAILY 07/17/24 Pregabalin [Lyrica*] 1 cap PO BID 07/17/24 Thyroid,Pork [[place] Thyroid] 1 tab PO DAILY 07/17/24 levoFLOXacin [Levaquin*] 750 mg PO DAILY 5 Days #5 tab 07/18/24 predniSONE [Prednisone*] 20 mg PO BID 4 Days #8 tab 07/18/24 New Medications: levoFLOXacin [Levaquin*] 750 mg PO DAILY 5 Days #5 tab predniSONE [Prednisone*] 20 mg PO BID 4 Days #8 tab Physician Discharge Instructions: Patient was admitted to hospital for dyspnea, suspected pneumonia. She was given nebulizer treatments, steroids and antibiotics and had improvement in her symptoms. Her initial chest x-ray showed concern for possible air under the diaphragm but CT performed after this showed no pneumoperitoneum. Her dyspnea improved overnight and she stable for discharge outpatient follow-up at this time. Followup: Raúl Solares MD [Primary Care Provider] - 1-2 Weeks
== END 2024-07-18 12:43 | disposition home or self-care (01) ==
LOC: ER 13:23 → ERHOLD 18:34 → 4TH 21:32
PROVIDERS: ADMIT Hospitalist; ATTEND Family Medicine
DX: J12.9 Viral pneumonia, unspecified (principal); J45.901 Unspecified asthma with (acute) exacerbation; R00.0 Tachycardia, unspecified; E03.9 Hypothyroidism, unspecified
CPT/HCPCS: 96365; 96361; 93005; 87040 ×2; 85025 ×2; 80048; 36415; 83605 ×4; 84443; 84484 ×2; 84439; 82607; 80053; 84145; 83880 ×2; 86140; 74177; 71045 ×2; 94640; 96375; 99285; Q9967; J7512; J2543; J7613 ×3; J7644 ×3; J2919 ×3; J7050; J7040; J7030 ×2; J0696; G0378